=== PATIENT | female | born 1990 | race Caucasian/White ===

== ENCOUNTER 2023-01-20 01:19 | Day surgery (SDC) | payer OTHER, SELFPAY ==
[2023-01-13 08:26] VITALS: BMI 27.4
--- NOTE | 2023-01-13 09:13 | PC.NURSE ---
Report to the Outpatient Waiting Room, entrance under the green pavilion located off [facility], at 0630 on 01-20-23. Planned Procedure Time: 0830. Time changes happen often and if your time is changed the preop area will call you the afternoon before. - You and your visitor will be asked to self-screen and do not enter if you have any COVID symptoms. - A mask is optional within the hospital at this time. Patients may have clear liquids (water, carbonated beverages, clear teas, apple juice) until 3 hours prior to surgery with a maximum of 20 ounces. 0530 - No food from midnight until time of surgery - Infants may have breast milk until 4 hours before surgery, formula 6 hours prior to surgery. - Children will be allowed to drink immediately following surgery. If applicable, please bring a bottle or sippy cup to assist with drinking. Juice, water, soda, and popsicles are readily available. For infants on formula, please bring formula the day of surgery. Pacifiers are allowed. Take the following medications with a SIP of water the morning of surgery: None DO NOT STOP ANY OF YOUR OTHER PRESCRIPTION MEDICATIONS PRIOR TO SURGERY ?EXCEPT THE FOLLOWING Medications to discontinue per physician: vitamins and supplements Date to take last dose: 01-17-23 Please no make-up, nail syrian, hairspray, perfume, deodorant, or body powder the day of surgery. No jewelry (including any body piercings) or valuables the day of surgery, leave them at home. Please take a shower or bath the night before, or the morning of, surgery with an antibacterial soap. Wear comfortable, loose fitting clothing. Children are encouraged to wear pajamas. - Jewelry must be removed prior to entering the operating room. Rings and piercings that are not removed may be cut off. - The hospital will not accept responsibility for valuables. - Please leave all valuables, including medications, at home the day of surgery. If you are going home after surgery, a licensed local company truck driver must drive you home. - NO public transportation without another adult if you receive anesthesia. - We recommend that an adult stay with you for 24 hours following discharge. - We also recommend that you do not drive, make important decision, drink alcoholic beverages, or take any drugs that were not prescribed by your health care provider for at least 24 hours after your discharge time. For Pediatric surgeries, we recommend two adults accompany the child home. Follow any additional instructions given to you from your surgeon. If you or anyone in your household have experienced Covid symptoms in the past week, please notify your surgeon or the nurse liaison at the phone number below for possible testing. Telephone instructions given to Parul Zhang and asked if any additional questions and then verbalized understanding. Patient advised to call surgeon office or pre surgery nurse liaison [phone] if any additional questions.
--- NOTE | 2023-01-19 14:26 | P.PNAN_ITS ---
Anes - Initial Pre Proc Eval Procedure: Operation Date: 01/20/23 08:30 Proposed Procedures p Diagnostic Laparoscopy, Bilateral Salpingectomy - Tiffanie Armijo DO Date/Time: 01/19/23 14:26 Surgeon: Tiffanie Armijo DO Pre Op Diagnosis: Desire Surgical Sterility Patient Data Age: 32 Gender: F Height: 1.68 m Weight: 77.11 kg Allergies Allergy/AdvReac Type Severity Reaction Status Date / Time fish derived Allergy Severe Anaphylaxis Verified 01/20/23 06:42 peanut Allergy Severe Anaphylaxis Verified 01/20/23 06:42 walnut Allergy Severe Anaphylaxis Verified 01/20/23 06:42 adair Allergy Severe Anaphylaxis Uncoded 01/20/23 06:42 Home Medications Medication Instructions Recorded Confirmed Type multivitamin with minerals-folic 1 tablet PO DAILY 01/13/23 01/13/23 History acid 200 mcg chewable tablet (Adult Multivitamin Gummies) omeprazole magnesium 20 mg 20 mg PO DAILY 01/13/23 01/13/23 History tablet,delayed release (Prilosec OTC) Patient hx anesthesia problems: none Family hx anesthesia problems: none Results Review: All pre-operative results and documents have been reviewed as part of the pre- operative evaluation. [facility] Social History Social History Smoking packs per day: 1 Smoking cigarettes per day: 20.0 Years smoked: 8 Smoking pack-years: 8.00 Smoking status: Former smoker Tobacco type: cigarettes Second hand tobacco smoke exposure: No Smoking end date: 09/14/13 Alcohol intake: current Alcohol use details: occasionally Substance use: current Substance use type: marijuana Living arrangements: with family Spiritual care concerns: No Anes - Eval Final PreProcedure Day of Procedure 01/19/23 14:26 Patient weight: overweight Heart: regular rate and rhythm Lungs: clear to auscultation and normal air movement Airway: Mallampati scale class II Neurological: alert and oriented Last oral intake: >/= 8 hours ASA classification: II Emergent: no Anesthetic plan: proceed Anesthesia type and monitoring: general ETT Results Review: All pre-operative results and documents have been reviewed as part of the pre- operative evaluation. Informed Consent: The patient's anesthetic plan and its attendant risks and benefits were discusse d with the patient/family/POA. Questions were solicited and answers provided to the satisfaction of the patient/family/POA.
[2023-01-20] VITALS (8 sets, daily range): BP systolic 108–137; BP diastolic 55–80; PULSE 50–68; RESP 12–18; TEMP 37.1; O2SAT 100
[2023-01-20] MEDS: GABAPENTIN 300 MG CAPSULE PO (06:45)
[2023-01-20] MEDS: ACETAMINOPHEN 500 MG TABLET 1000 MG PO (06:45)
[2023-01-20] MEDS: LACTATED RINGERS 1,000 ML 30 ML IV CONT (07:17)
--- NOTE | 2023-01-20 08:13 | WPDHPUPDATE1 ---
History and Physical Update Update Date/Time: 01/20/23 08:13 History and Physical has been reviewed, including an updated exam of the patient. There are NO changes in the patient's condition. Risks, benefits, and alternatives have been discussed and questions answered. Patient agrees to proceed with procedure.
--- NOTE | 2023-01-20 08:14 | PM.IMHP ---
H&P: HPI History of Present Illness Date/Time: 01/20/23 08:14 Chief Complaint: I'm here to have my tubes out Narrative: Parul is here for diagnostic lap, bilateral salpingectomy desiring permanent sterilization. Review of Systems Review of Systems: All systems reviewed & are unremarkable except as noted in HPI and below PMFSH Social History Social History Smoking packs per day: 1 Smoking cigarettes per day: 20.0 Years smoked: 8 Smoking pack-years: 8.00 Smoking status: Former smoker Tobacco type: cigarettes Second hand tobacco smoke exposure: No Smoking end date: 09/14/13 Alcohol intake: current Alcohol use details: occasionally Substance use: current Substance use type: marijuana Living arrangements: with family Spiritual care concerns: No Meds Home Medications and Allergies Home Medications Medication Instructions Recorded Confirmed Type multivitamin with minerals-folic 1 tablet PO DAILY 01/13/23 01/13/23 History acid 200 mcg chewable tablet (Adult Multivitamin Gummies) omeprazole magnesium 20 mg 20 mg PO DAILY 01/13/23 01/13/23 History tablet,delayed release (Prilosec OTC) Allergies Allergy/AdvReac Type Severity Reaction Status Date / Time fish derived Allergy Severe Anaphylaxis Verified 01/20/23 06:42 peanut Allergy Severe Anaphylaxis Verified 01/20/23 06:42 walnut Allergy Severe Anaphylaxis Verified 01/20/23 06:42 adair Allergy Severe Anaphylaxis Uncoded 01/20/23 06:42 Vital Signs Vital Signs - 24 hr 01/20/23 07:12 Temperature 37.1 C Pulse Rate 63 Respiratory Rate 16 Blood Pressure 120/71 Pulse Oximetry 100 Oxygen Delivery Room Air Exam Const: General: comfortable and no acute distress Eyes: General: appearance normal, both eyes and all related structures Resp: Effort & Inspection: normal respiratory effort Auscultation: clear to auscultation bilaterally Cardio: Rate: regular rate Rhythm: regular rhythm GI: GI Palp: Yes Soft to palpation Auscultation: normal bowel sounds Skin: General skin exam: normal color and no rashes or lesions noted Wounds: no wounds Psych: Mental Status: mental status grossly normal Assessment and Plan Assessment and plan (1) Sterilization: Code(s): Z30.2 - Encounter for sterilization Status: Acute Plan Diagnostic laparoscopy, bilateral salpingectomy
[2023-01-20] MEDS: BUPivacaine HCL 0.25% PF 30 ML VIAL 10 ML INFILTRATE (09:01)
--- NOTE | 2023-01-20 09:16 | P.OP_ITS ---
Procedure Note - Detailed Date of Procedure 01/20/23 Pre-op Diagnosis Desire Surgical Sterility Post-op Diagnosis Same Procedure Performed Diagnostic laparoscopy, bilateral salpingectomy, lysis of adhesions. Surgeon Tiffanie Armijo, [employer] Anesthesia General Indications Desires permanent sterilization Findings Normal appearing vulva and vaginal canal. Medium-sized cervix. Uterus sounded to 8.5 cm. Internally, the liver, gallbladder and stomach were unremarkable. The bowels were unremarkable. There is a small area of omental adhesions to the anterior abdominal wall just distal to the umbilicus. The uterus, tubes and ovaries were unremarkable. There was moderate scarring of the bladder flap. Description of Procedure Patient was taken to the operating room where she was placed under general anesthesia. She was prepped and draped in the normal sterile fashion in a dorsal lithotomy position. No preoperative antibiotics were indicated. After a time-out was performed, a speculum was placed in the vagina and the cervix was visualized. An Allis clamp was used to grasp the anterior lip of the cervix. The uterus was sounded to 8.5 cm. The cervical os was dilated up to accommodate a Kroner uterine manipulator. Once the manipulator was placed, gloves were changed and attention was then turned to the abdomen. Two penetrating towel clips were used above the umbilicus to grasp the skin. The area was injected with local and a small incision was made. A Veress needle was introduced and the saline water drop test was performed to confirm intraperitoneal placement. The abdomen was insufflated to a filling pressure of 15 mmHg. The Veress needle was then replaced with a 5 mm Optiview trocar which was introduced under direct visualization. Survey of the abdomen revealed no evidence of bowel or vascular injury upon entry. The adhesion was seen in the midline but did not prevent placement of the right and left lower quadrant trocars. Patient was placed in steep Trendelenburg position. Additional trocar sites in the right and left lower quadrants were identified, injected and incised. 5 mm trocars were inserted under direct visualization. The LigaSure was introduced and took down the omental adhesion with no difficulty. There was no bowel involved in the adhesion. The right tube was then elevated and was cauterized and transected off using the LigaSure. The specimen was passed off through the assistant housekeeping manager port. The procedure was repeated in an identical fashion on the left-hand side. The surgical speckles were reinspected and found to be hemostatic. There was a small amount of oozing where the omental adhesion was taken down and this was made hemostatic easily with the LigaSure. The history insert trocars were removed and the CO2 gas was allowed to escape from the abdomen. The abdominal incisions were closed with subcuticular 4-0 Monocryl and covered with skin glue. The uterine manipulator was removed from the vagina. The patient was taken to the recovery room in stable condition. All instrument and sponge counts were correct at the conclusion of the procedure. Estimated Blood Loss 5 IV Fluids 700 Drains No Packing No Pathology Yes Complications No immediate complications Condition Stable Disposition PACU
[2023-01-20] MEDS: fentaNYL CITRATE INJ (*CRX) 100 MCG/2 ML VIAL 25 MCG IV PUSH ×4 (09:39→09:52)
[2023-01-20] MEDS: oxyCODONE HCL (*CRX) 5 MG TAB IR PO (10:20)
[2023-01-20] MEDS: ONDANSETRON INJ 4 MG/2 ML VIAL IV PUSH (10:33)
== END 2023-01-20 11:06 | disposition home or self-care (01) ==
PROVIDERS: Visit Provider Obstetrics & Gynecology Gynecologic Oncology
PROC: (CPT 49320; principal; 2023-01-20 08:30)
DX: Z30.2 Encounter for sterilization (principal); N73.6 Female pelvic peritoneal adhesions (postinfective); Z87.891 Personal history of nicotine dependence; F12.90 Cannabis use, unspecified, uncomplicated
CPT/HCPCS: 58661; 88302; A9270; J1100; J2250; J2405; J2704; J2710; J3010; J7030; J7120